=== PATIENT | female | born 1970 | race Caucasian/White ===

== ENCOUNTER 2017-03-30 19:35 | Emergency (ER) | payer BC ==
[2017-03-30 19:54] VITALS: BP 122/86
--- NOTE | 2017-03-30 20:12 | UC ---
UC General HPI - HPI Summary HPI Summary: The patient comes in today for: 1. Epigastric pain: Onset: 9 hours ago when she was hiking [place]. Palliative/provocative: Nothing else made it better. Quality: Ache, pressure, burning. Region: Epigastric area with no radiation. Severity: Initially, it was 6/10 and now about 6/10 Time: Constant. Associated symptoms: Nausea: She vomited once. Diaphoresis: She had some sweating during her [place] climb. Lightheadedness: None. CAD risk factors: HTN: (-). DM: (-). Family history: (-). Smoker: (-). Previous disease (CAD, stroke): (-). Cholesterol: "within normal limits." Last BM: today and was normal. * - History of Current Complaint Chief Complaint: UCChestPain Stated Complaint: EPIGASTRIC PAIN Time Seen by Provider: 03/30/17 19:39 Hx Obtained From: Patient - Allergy/Home Medications Allergies/Adverse Reactions: Allergies Allergy/AdvReac Type Severity Reaction Status Date / Time No Known Allergies Allergy Verified 03/30/17 19:54 Home Medications: Home Medications Alum & Mag Hydrox-Simethicone [Mylanta 200-200-20 mg/5Ml] 1 alexia PO BID PRN 03/30 [History Confirmed 03/30/17] Cholecalciferol TAB* [Vitamin D TAB*] 50,000 unit PO WEEKLY 03/30/17 [History Confirmed 03/30/17] Omeprazole CAP* [Prilosec CAP* 20 MG] 20 mg PO DAILY 03/30/17 [History Confirmed 03/30/17] PMH/Surg Hx/FS Hx/Imm Hx Previously Healthy: No - Low vitamin D levels. GI/ History: Gastroesophageal Reflux - Surgical History Surgical History: Yes Surgery Procedure, Year, and Place: [facility], Gallbladder removed, Sinus Surgery, Deviated Septum - Family History Known Family History: Positive: Cardiac Disease - Father has "low ejection" from rheumatic fever., Hypertension, Diabetes - Social History Occupation: Employed Full-time Alcohol Use: None Substance Use Type: None Smoking Status (MU): Never Smoked Tobacco Review of Systems Constitutional: Negative Skin: Negative Eyes: Negative ENT: Negative Respiratory: Negative Cardiovascular: Chest Pain Gastrointestinal: Negative, Vomiting Genitourinary: Negative All Other Systems Reviewed And Are Negative: Yes Physical Exam Triage Information Reviewed: Yes Appearance: Well-Appearing, No Pain Distress, Well-Nourished Vital Signs: Initial Vital Signs Temp 98.3 F 03/30/17 19:51 Pulse 98 03/30/17 19:51 Resp 18 03/30/17 19:51 BP 122/86 03/30/17 19:51 Pulse Ox 96 03/30/17 19:51 Vital Signs Reviewed: Yes Eyes: Positive: Conjunctiva Clear. Negative: Discharge ENT: Positive: Hearing grossly normal. Negative: Pharyngeal erythema, Nasal congestion, Nasal drainage, TM bulging, TM dull, TM red, Tonsillar swelling, Tonsillar exudate Dental: Negative: Gross Decay/Caries @, Dental Fracture @ Neck: Positive: Supple, Nontender, No Lymphadenopathy. Negative: Nuchal Rigidity Respiratory: Positive: Lungs clear, No respiratory distress, No accessory muscle use. Negative: Crackles, Wheezing Cardiovascular: Positive: RRR, No Murmur Abdomen Description: Positive: Nontender, No Organomegaly, Soft. Negative: Distended, Guarding, Peritoneal Signs Musculoskeletal: Positive: Strength Intact, ROM Intact, No Edema, Other: - No chest tenderness. Neurological: Positive: Alert Psychological: Positive: Age Appropriate Behavior, Consolable Skin: Negative: rashes, breakdown Diagnostics - Laboratory Diagnostic Studies Completed/Ordered: EKG. Rate: 88. Rhythm: Regular sinus. [place]: +30 degrees. Ectopy: none. Acute changes: None. Course/Dx - Course Course Of Treatment: Patient was told that I did not know what was causing her epigastric pressure. She was told that it may be related to an inferior wall ischemia or something abdominal. In order get more needed testing done to figure out, she would need to go to the ER which I recommended. She agreed to go by ambulance. - Differential Dx - Multi-Symptom Provider Diagnoses: Lower chest/epigastric pressure (atypical chest pain) Discharge - Discharge Plan Condition: Stable Disposition: HOME Additional Instructions: Patient is going to [facility] ER via ambulance.
[2017-03-30] MEDS ORDERED: Aspirin Low Dose CHEW TAB* 81 MG PO ONE (20:21)
== END 2017-03-30 20:40 | disposition short-term general hospital (02) ==
LOC: UCEAST 19:35
DX: R07.89 Other chest pain (principal); E55.9 Vitamin D deficiency, unspecified; K21.9 Gastro-esophageal reflux disease without esophagitis
CPT/HCPCS: 93005; 99203; A9270-GY; G0463

== ENCOUNTER 2017-03-30 21:07 | Emergency (ER) | payer BC ==
[2017-03-30] MEDS ORDERED: Aspirin Low Dose CHEW TAB* 81 MG PO ONE (22:08)
[2017-03-30] MEDS ORDERED: Pantoprazole IV* 40 MG IV ONE (22:33)
[2017-03-30 23:34] LABS: Hematocrit 41 % (35-47); Hemoglobin 13.4 g/dl (12.0-16.0); Mean Corpuscular HGB Conc 33 g/dl (31-36); Mean Corpuscular Hemoglobin 27 pg (27-31); Mean Corpuscular Volume 82 fL (80-97); Mean Platelet Volume 8 um3 (7.4-10.4); Red Blood Count 4.98 10^6/ul (4.0-5.4); Red Cell Distribution Width 14 % (10.5-15); White Blood Count 12.5 10^3/ul (3.5-10.8)
[2017-03-30 23:53] LABS: Albumin 4.2 g/dL (3.2-5.2); BUN/Creatinine Ratio 14.9 (8-20); Calcium 9.4 mg/dL (8.6-10.3); EGFR African American 121.3 (>60); EGFR Non-African American 94.3 (>60); Globulin 3.5 g/dL (2-4); Potassium 3.8 mmol/L (3.5-5.0); Total Bilirubin 0.7 mg/dL (0.2-1.0); Total Protein 7.7 g/dL (6.4-8.9)
[2017-03-31 00:34] VITALS: BP 121/75
--- NOTE | 2017-03-31 04:34 | ED ---
Sajan Joshua Rebecca, scribed for Neville Condon MD on 03/30/17 at 2230 . Abdominal Pain/Female - HPI Summary HPI Summary: Pt is a 46 y/o F who presents to ED c/o epigastric pain. Pain began suddenly at 1100 while beginning to hike and has been constant since onset. Pain is discrete to the epigastric region without radiation and is currently mild, ranked 3/10 and characterized as burning. Describes the sensation as it "feels like when my acid reflux flares up." Sx aggravated and alleviated by nothing. Additionally c/o N/V (1x) and diaphoresis which was likely secondary to hiking. Denies edema, pain in calves, SOB, diarrhea, back pain and increases in belching or passing gas. Has never had a stress test. No recent travel or injuries. PSHx cholecystectomy and appy. PMHx GERD (takes Prilosec). Reports she typically only has 2 flare ups per year, but she had one during weekend (3 weeks ago), after which she saw her PCP who raised her Prilosec dosage to 2x per day. - History of Current Complaint Chief Complaint: EDAbdPain Stated Complaint: EPIGATRIC PAIN Time Seen by Provider: 03/30/17 22:16 Hx Obtained From: Patient Hx Last Menstrual Period: 03/06/17 Onset/Duration: Sudden Onset, Still Present Timing: Constant Severity Initially: Mild Severity Currently: Mild Pain Intensity: 3 Pain Scale Used: 0-10 Numeric Location: Epigastric Radiates: No Character: Burning Aggravating Factor(s): Nothing Alleviating Factor(s): Nothing Associated Signs and Symptoms: Positive: Diaphoresis - secondary to hiking, Nausea, Vomiting - 1 episode, Other: - Denies edema, pain in calves, SOB and icnreased belching or passing gas. Negative: Back Pain, Diarrhea Allergies/Adverse Reactions: Allergies Allergy/AdvReac Type Severity Reaction Status Date / Time No Known Allergies Allergy Verified 03/30/17 19:54 PMH/Surg Hx/FS Hx/Imm Hx Endocrine/Hematology History: Denies: Hx Diabetes Cardiovascular History: Denies: Hx Hypertension Respiratory History: Denies: Hx Chronic Obstructive Pulmonary Disease (COPD) - Surgical History Surgery Procedure, Year, and Place: [facility], Gallbladder removed, Sinus Surgery, Deviated Septum Infectious Disease History: No Infectious Disease History: Denies: Traveled Outside the [place] in Last 30 Days - Family History Known Family History: Positive: Cardiac Disease - Father has "low ejection" from rheumatic fever., Hypertension, Diabetes - Social History Alcohol Use: None Substance Use Type: Reports: None Smoking Status (MU): Never Smoked Tobacco Review of Systems Positive: Skin Diaphoresis - likely secondary to hiking Negative: Shortness Of Breath Positive: Abdominal Pain - epigastric burning , Vomiting - 1 episode, Nausea, Other - Denies icnreases in belching or passing gas. Negative: Diarrhea Positive: Arthralgia - Denies back pain, Other - Denies pain in calves. Negative: Edema All Other Systems Reviewed And Are Negative: Yes Physical Exam - Summary Physical Exam Summary: The patient is well-nourished in no acute distress and in no acute pain. The skin is warm and dry and skin color reflects adequate perfusion. HEENT: The head is normocephalic and atraumatic. The pupils are equal and reactive. The conjunctivae are clear and without drainage. Nares are patent and without drainage. Mouth reveals moist mucous membranes and the throat is without erythema and exudate. The external ears are intact. Neck is supple with full range of motion and non-tender. There are no carotid bruits. There is no neck vein distension. Respiratory: Chest is non-tender. Lungs are clear to auscultation and breath sounds are symmetrical and equal. Cardiovascular: Hear is regular rate and rhythm. There is no murmur or rub auscultated. There is no peripheral edema and pulses are symmetrical and equal. No reproducible anterior chest wall pain. Abdomen: The abdomen is soft and non-tender. No reproducible abdominal pain to palpation. There are normal bowel sounds heard in all four quadrants and there is no organomegaly palpated. Musculoskeletal: There is no back pain noted. Extremities are non-tender with full range of motion. There is good capillary refill. There is no peripheral edema or calf tenderness elicited. No CVA tenderness. Neurological: Patient is alert and oriented to person, place and time. The patient has symmetrical motor strength in all four extremities. Cranial nerves are grossly intact. Deep tendon reflexes are symmetrical and equal in all four extremities. Psychiatric: The patient has an appropriate affect and does not exhibit any anxiety or depression. Triage Information Reviewed: Yes Vital Signs On Initial Exam: Initial Vitals Temp Pulse Resp BP Pulse Ox 98.6 F 96 18 136/79 97 03/30/17 21:11 03/30/17 21:11 03/30/17 21:11 03/30/17 21:11 03/30/17 21:11 Vital Signs Reviewed: Yes Diagnostics - Vital Signs Vital Signs Temp Pulse Resp BP Pulse Ox 03/30/17 21:11 98.6 F 96 18 136/79 97 - Laboratory Lab Results: Lab Results 03/30/17 03/30/17 03/30/17 Range/Units 23:19 23:19 23:19 WBC 12.5 H (3.5-10.8) 10^3/ul RBC 4.98 (4.0-5.4) 10^6/ul Hgb 13.4 (12.0-16.0) g/dl Hct 41 (35-47) % MCV 82 (80-97) fL MCH 27 (27-31) pg MCHC 33 (31-36) g/dl RDW 14 (10.5-15) % Plt Count 348 (150-450) 10^3/ul MPV 8 (7.4-10.4) um3 Neut % (Auto) 76.4 (38-83) % Lymph % (Auto) 15.0 L (25-47) % Simpson % (Auto) 7.3 (1-9) % Eos % (Auto) 0.4 (0-6) % Baso % (Auto) 0.9 (0-2) % Absolute Neuts (auto) 9.5 H (1.5-7.7) 10^3/ul Absolute Lymphs (auto) 1.9 (1.0-4.8) 10^3/ul Absolute Monos (auto) 0.9 H (0-0.8) 10^3/ul Absolute Eos (auto) 0 (0-0.6) 10^3/ul Absolute Basos (auto) 0.1 (0-0.2) 10^3/ul Absolute Nucleated RBC 0.01 10^3/ul Nucleated RBC % 0.1 D-Dimer, Quantitative (Less Than 230) ng/mL Sodium 135 (133-145) mmol/L Potassium 3.8 (3.5-5.0) mmol/L Chloride 105 (101-111) mmol/L Carbon Dioxide 20 L (22-32) mmol/L Anion Gap 10 (2-11) mmol/L BUN 10 (6-24) mg/dL Creatinine 0.67 (0.51-0.95) mg/dL Est GFR ( Amer) 121.3 (>60) Est GFR (Non-Af Amer) 94.3 (>60) BUN/Creatinine Ratio 14.9 (8-20) Glucose 100 (70-100) mg/dL Lactic Acid 0.9 (0.5-2.0) mmol/L Calcium 9.4 (8.6-10.3) mg/dL Total Bilirubin 0.70 (0.2-1.0) mg/dL AST 15 (13-39) U/L ALT 13 (7-52) U/L Alkaline Phosphatase 90 (34-104) U/L Troponin I 0.00 (<0.04) ng/mL B-Natriuretic Peptide ( - 100) pg/mL Total Protein 7.7 (6.4-8.9) g/dL Albumin 4.2 (3.2-5.2) g/dL Globulin 3.5 (2-4) g/dL Albumin/Globulin Ratio 1.2 (1-3) 03/30/17 03/30/17 Range/Units 23:19 23:19 WBC (3.5-10.8) 10^3/ul RBC (4.0-5.4) 10^6/ul Hgb (12.0-16.0) g/dl Hct (35-47) % MCV (80-97) fL MCH (27-31) pg MCHC (31-36) g/dl RDW (10.5-15) % Plt Count (150-450) 10^3/ul MPV (7.4-10.4) um3 Neut % (Auto) (38-83) % Lymph % (Auto) (25-47) % Simpson % (Auto) (1-9) % Eos % (Auto) (0-6) % Baso % (Auto) (0-2) % Absolute Neuts (auto) (1.5-7.7) 10^3/ul Absolute Lymphs (auto) (1.0-4.8) 10^3/ul Absolute Monos (auto) (0-0.8) 10^3/ul Absolute Eos (auto) (0-0.6) 10^3/ul Absolute Basos (auto) (0-0.2) 10^3/ul Absolute Nucleated RBC 10^3/ul Nucleated RBC % D-Dimer, Quantitative < 200 (Less Than 230) ng/mL Sodium (133-145) mmol/L Potassium (3.5-5.0) mmol/L Chloride (101-111) mmol/L Carbon Dioxide (22-32) mmol/L Anion Gap (2-11) mmol/L BUN (6-24) mg/dL Creatinine (0.51-0.95) mg/dL Est GFR ( Amer) (>60) Est GFR (Non-Af Amer) (>60) BUN/Creatinine Ratio (8-20) Glucose (70-100) mg/dL Lactic Acid (0.5-2.0) mmol/L Calcium (8.6-10.3) mg/dL Total Bilirubin (0.2-1.0) mg/dL AST (13-39) U/L ALT (7-52) U/L Alkaline Phosphatase (34-104) U/L Troponin I (<0.04) ng/mL B-Natriuretic Peptide 35 ( - 100) pg/mL Total Protein (6.4-8.9) g/dL Albumin (3.2-5.2) g/dL Globulin (2-4) g/dL Albumin/Globulin Ratio (1-3) Result Diagrams: 03/30/17 23:19 03/30/17 23:19 Lab Statement: Any lab studies that have been ordered have been reviewed, and results considered in the medical decision making process. - Radiology CXR Xray Interpretation: No Acute Changes - Reveals no active disease, no PNA, no PTX Radiology Interpretation Completed By: ED Physician - EKG 2151 Cardiac Rate: NL - 90 bpm EKG Rhythm: Sinus Rhythm EKG Interpretation: Normal axis, Poor R wave progression, no evidence of STEMI Re-Evaluation - Re-Evaluation First Eval Re-Evaluation Time: 00:53 Change: Improved Comment: Discussed CXR, EKG and lab results with pt. Offered her the option of admission which she chose to decline, instead agreeing to follow up with her PCP and consider outpatient stress test. Abdominal Pain Fem Course/Dx - Course Course Of Treatment: Pt is a 46 y/o F with a CC of constant, burning epigastric pain since 1100 [address]ya that began immediately upon starting to hike. Additionally c/o N/V (1x) and diaphoresis which was likely secondary to hiking. Denies edema, pain in calves, SOB, diarrhea, back pain and increases in belching or passing gas. PMHx GERD for which she takes Prilosec. Pt received ASA and Protonix in the course of the ED. Her troponin was taken 12 hours after the onset of chest pain and was 0.00. Had an EKG which revealed no evidence of ischemia. CXR as read by me, reveals no active disease, no PNA and no PTX with normal heart size. She is a low risk patient. Offered her the chance for admission for observation and the patient requests to follow up with PCP as an outpatient. She will be D/C to home with Dx of chest pain and a follow up with her PCP, as well as directions to take ASA daily and consider an outpatient stress test. - Diagnoses Differential Diagnosis: Positive: ACS, Other - gerd, angina,pe, pneumonia, exertional chest pain Provider Diagnoses: Chest pain Discharge - Discharge Plan Condition: Stable Disposition: HOME Patient Education Materials: Chest Pain (ED) Referrals: Non Staff,Doctor [Primary Care Provider] - 3 Days (Follow up with your primary care physician. ) Additional Instructions: Take 81 mg aspirin daily. Follow up with your primary care physician and consider an outpatient stress test. The documentation as recorded by the Sajan stephenson Rebecca accurately reflects the service I personally performed and the decisions made by me, Neville Condon MD.
--- NOTE | 2017-03-31 09:27 | RAD ---
INDICATION: Chest pain, pneumonia, CHF. COMPARISON: No relevant prior exams available on the [facility] for comparison. TECHNIQUE: Dual energy PA and routine lateral views of the chest were obtained. REPORT: Clear lungs and pleural spaces. Negative for pneumothorax. The heart, pulmonary vasculature, and mediastinal contours are unremarkable. Gallbladder fossa level surgical clips. Unremarkable osseous structures and soft tissue contours. IMPRESSION: No evidence for acute intrathoracic disease.
== END 2017-03-31 01:07 | disposition home or self-care (01) ==
LOC: ED 21:07
DX: R07.89 Other chest pain (principal); R11.2 Nausea with vomiting, unspecified; R10.13 Epigastric pain; R61 Generalized hyperhidrosis; M25.50 Pain in unspecified joint; K21.9 Gastro-esophageal reflux disease without esophagitis; Z90.49 Acquired absence of other specified parts of digestive tract
CPT/HCPCS: 36415; 71020; 80053; 83605; 83880; 84484; 85025; 85379; 93005; 96374; 99283